=== PATIENT | female | born 1940 | race Caucasian/White ===

== ENCOUNTER 2018-03-10 09:24 | Emergency (ER) | payer OTHER ==
[~2018-03-10] VITALS: Ht 152.4 cm; Wt 2.3 kg
[2018-03-10] MEDS ORDERED: COZAAR100 MG (09:38)
[2018-03-10] MEDS ORDERED: NORVASC5 MG (09:38)
[2018-03-10] MEDS ORDERED: ULTRAM50 MG PO (11:44)
== END 2018-03-10 12:18 | disposition home or self-care (01) ==
LOC: ER 09:24
DX: S70.11XA Contusion of right thigh, initial encounter (principal); S70.01XA Contusion of right hip, initial encounter; S89.81XA Other specified injuries of right lower leg, initial encounter; W18.09XA Striking against other object with subsequent fall, initial encounter; Y93.89 Activity, other specified; Y92.018 Other place in single-family (private) house as the place of occurrence of the external cause; Y99.8 Other external cause status

== ENCOUNTER 2021-01-05 10:21 | Emergency (ER) | payer OTHER ==
[~2021-01-05] VITALS: Ht 154.9 cm; Wt 61.2 kg
[~2021-01-05 10:21] MED LIST: COZAAR100 MG; NORVASC5 MG; ULTRAM50 MG PO
== END 2021-01-05 12:51 | disposition home or self-care (01) ==
LOC: ER 10:21
DX: G89.11 Acute pain due to trauma (principal); M54.89 Other dorsalgia

== ENCOUNTER 2024-01-30 12:52 | Emergency (ER) | payer OTHER ==
[~2024-01-30] VITALS: Ht 157.5 cm; Wt 63.5 kg
[~2024-01-30 12:52] MED LIST changes: +PANADOL
[2024-01-30 15:05] LABS: HEMATOCRIT 41.2 % (36.0-45.00); HEMOGLOBIN 13.5 g/dL (12.0-15.00); MEAN CELL VOLUME 87.5 fL (80.00-100.00); MEAN CORPUSCULAR HEMOGLOBIN 28.7 pg (27.00-32.0); MEAN CORPUSCULAR HGB CONC 32.8 g/dl (32.0-36.0); PLATELET COUNT 263 K/uL (150-450); RED CELL DISTRIBUTION WIDTH 14.4 % (11.5-14.5)
[2024-01-30 15:26] LABS: CALCIUM 9.5 mg/dL (8.5-10.1); CREATININE SERUM 0.95 mg/dL (0.55-1.02); GFR 56.32; POTASSIUM 3.59 mEq/L (3.5-5.1)
[2024-01-30 18:55] LABS: PH,URINE 5.5 (5.0-8.0); URINE APPEARANCE Cloudy; URINE BILIRRUBIN Negative (NEGATIVE); URINE BLOOD Large; URINE COLOR Yellow; URINE GLUCOSE Negative (NEGATIVE); URINE KETONE Negative (NEGATIVE); URINE LEUKOCYTE Moderate; URINE NITRATE Negative; URINE UROBILINOGEN 0.2 E.U./dl
[2024-01-30 18:59] LABS: URINE BACTERIA 5672.2 uL (0.0-1933); URINE EPITHELIAL CELLS 19.7 uL (0.0-38.8); URINE RBC 51.6 uL (0.0-20.8); URINE WBC 170.5 uL (0.0-23.2)
[2024-01-30 19:06] LABS: URINE CAST 0.45 uL (0.0-1.40); URINE PROTEIN 100 (NEGATIVE)
== END 2024-01-30 21:27 | disposition home or self-care (01) ==
LOC: ER 12:52
PROVIDERS: General Practice
DX: R53.1 Weakness (principal); I10 Essential (primary) hypertension; Z20.822 Contact with and (suspected) exposure to COVID-19

== ENCOUNTER 2024-04-07 10:35 | Inpatient (IN) | payer OTHER ==
[~2024-04-07] VITALS: Ht 152.4 cm; Wt 139.7 kg
--- NOTE | 2024-04-07 11:13 | NUR ---
SE RECIBE PTRE ALERTA DESORIENATADA EN COMPANIA DE PARAMEDICOS Y FAMILIAR EL CUAL REFIERE PTE PRESENTO EPISODIO DE CONVULSION EN EL HOHAR.SE AMANDA EKG Y SE PRESENTA A .
[2024-04-07] MEDS ORDERED: 0.9 % SODIUM CHLORIDE 1,000 ML IV SCH ×2 (11:30→18:30)
[2024-04-07 12:29] LABS: HEMATOCRIT 40.4 % (36.0-45.00); HEMOGLOBIN 13.1 g/dL (12.0-15.00); MEAN CELL VOLUME 88.4 fL (80.00-100.00); MEAN CORPUSCULAR HEMOGLOBIN 28.6 pg (27.00-32.0); MEAN CORPUSCULAR HGB CONC 32.4 g/dl (32.0-36.0); PLATELET COUNT 342 K/uL (150-450); RED BLOOD COUNT 4.57 M/uL (4.00-6.00); RED CELL DISTRIBUTION WIDTH 14.3 % (11.5-14.5)
--- NOTE | 2024-04-07 12:45 | NUR ---
SE RECIBE PTE ALERTA DESORIENTADA EN COMPANIA DE FAMILIAR.SE EDINSON MUESTRAS DE LABORATORIO USANDO MEDIDAS ASEPTICAS.SE REALIZA CATETERIZACION DE ORINA.SE ADMINISTRAN MEDICAMENTOS AURY ORDEN.SE ORIENTA A FAMILIAR SOBRE OBJETIVO DE [place] MEDICO.
[2024-04-07 12:54] LABS: INR 0.99; PROTHROMBIN TIME 10.8 SECONDS (9.0-11.5)
--- NOTE | 2024-04-07 14:05 | NUR ---
SE INTENTA CATETERIZACION Y NO SE PUDO RECOLECTAR MUESTRA.
[2024-04-07 14:53] LABS: CALCIUM 9.4 mg/dL (8.5-10.1); CREATININE SERUM 0.89 mg/dL (0.55-1.02); GFR 60.72; POTASSIUM 3.47 mEq/L (3.5-5.1)
[2024-04-07] MEDS ORDERED: INSULIN LISPRO 1,000 UNIT/10 ML UNITS SUBCUTANEO PRN (18:30)
[2024-04-07] MEDS ORDERED: DEXTROSE 50 % IN WATER 0.5 G/ML DISP.SYRIN IV PRN (18:30)
[2024-04-07] MEDS ORDERED: CEFTRIAXONE SODIUM 1,000 MG VIAL IV SCH (18:42)
[2024-04-07] MEDS ORDERED: ONDANSETRON HCL 4 MG in DEXTROSE 5 % IN WATER 50 ML IV PRN (18:45)
[2024-04-07] MEDS ORDERED: ACETAMINOPHEN 500 MG GEL..CAP PO PRN (18:45)
[2024-04-07] MEDS ORDERED: MORPHINE SULFATE 2 MG/ML CARTRIDGE IV PRN (18:45)
[2024-04-07] MEDS ORDERED: hydrALAZINE HCL 20 MG VIAL IV PRN (18:45)
[2024-04-07] MEDS ORDERED: LevETIRAcetam 500 MG/5 ML VIAL IV SCH (21:00)
[2024-04-07] MEDS ORDERED: FAMOTIDINE/PF 20 MG in 0.9 % SODIUM CHLORIDE 8 ML IV PUSH SCH (21:00)
[2024-04-07 22:30] VITALS: BP 150/80; O2SAT 99
[2024-04-07 22:38] LABS: URINE APPEARANCE Clear; URINE BILIRRUBIN Negative (NEGATIVE); URINE BLOOD Moderate; URINE COLOR Yellow; URINE GLUCOSE Negative (NEGATIVE); URINE KETONE Negative (NEGATIVE); URINE LEUKOCYTE Small; URINE NITRATE Negative; URINE PROTEIN Negative (NEGATIVE)
[2024-04-07 22:43] LABS: URINE BACTERIA 1075.8 uL (0.0-1933); URINE EPITHELIAL CELLS 7.5 uL (0.0-38.8); URINE RBC 68.4 uL (0.0-20.8); URINE WBC 105.7 uL (0.0-23.2)
[2024-04-07 22:44] LABS: URINE CAST 0.44 uL (0.0-1.40)
[2024-04-08 01:56] VITALS: BP 153/74; O2SAT 97
[2024-04-08 05:15] VITALS: BP 186/74
[2024-04-08 05:30] VITALS: BP 143/75; O2SAT 98
[2024-04-08 07:52] LABS: URINE APPEARANCE Clear; URINE BILIRRUBIN Negative (NEGATIVE); URINE BLOOD Moderate; URINE COLOR Yellow; URINE GLUCOSE Negative (NEGATIVE); URINE KETONE Trace (NEGATIVE); URINE LEUKOCYTE Small; URINE NITRATE Negative; URINE PROTEIN 30 (NEGATIVE)
[2024-04-08 07:57] LABS: URINE BACTERIA 156.6 uL (0.0-1933); URINE CAST 1.91 uL (0.0-1.40); URINE RBC 179.8 uL (0.0-20.8); URINE WBC 378.3 uL (0.0-23.2)
[2024-04-08 07:59] LABS: INR 1.02; PARTIAL THROMBOPLASTIN TIME 31.6 SECONDS (22.0-34.0); PROTHROMBIN TIME 11.1 SECONDS (9.0-11.5)
[2024-04-08 08:25] LABS: ALBUMIN 3.1 gm/dL (3.4-5.0); BILIRUBIN TOTAL 0.5 mg/dL (0.3-1.2); BILIRUBIN,CONJUGATED 0.14 mg/dL (0.0-0.2); BILIRUBIN,UNCONJUGATED 0.36 mg/dL (0.0-0.6); CALCIUM 8.7 mg/dL (8.5-10.1); CHOL HDL RATIO 3.1 (0-5.0); CREATININE SERUM 0.65 mg/dL (0.55-1.02); GFR 87.26; GLOBULINA 3.5 G/DL (2.4-3.5); POTASSIUM 3.92 mEq/L (3.5-5.1); TOTAL PROTEIN 6.6 gm/dL (6.4-8.2)
[2024-04-08 08:27] LABS: C-REACTIVE PROTEIN 2.61 MG/DL (0.00-0.29)
[2024-04-08 08:40] LABS: HEMATOCRIT 34.6 % (36.0-45.00); HEMOGLOBIN 11.6 g/dL (12.0-15.00); MEAN CELL VOLUME 88.5 fL (80.00-100.00); MEAN CORPUSCULAR HEMOGLOBIN 29.7 pg (27.00-32.0); MEAN CORPUSCULAR HGB CONC 33.5 g/dl (32.0-36.0); PLATELET COUNT 281 K/uL (150-450); RED BLOOD COUNT 3.91 M/uL (4.00-6.00); RED CELL DISTRIBUTION WIDTH 14.5 % (11.5-14.5)
[2024-04-08 09:04] VITALS: BP 156/8; O2SAT 94
[2024-04-08 09:04] LABS: ERYTHROCYTE SEDIMENTATION RATE 65 mm/hr
[2024-04-08 16:51] VITALS: BP 109/79; O2SAT 96
[2024-04-09 00:35] VITALS: BP 129/62
[2024-04-09 09:00] VITALS: BP 137/73; O2SAT 95
[2024-04-09] MEDS ORDERED: CEFTRIAXONE SODIUM 2,000 MG VIAL IV SCH (09:00)
[2024-04-09 16:39] VITALS: BP 191/94; O2SAT 95
[2024-04-10 01:44] VITALS: BP 170/80
[2024-04-10] MEDS ORDERED: FAMOTIDINE/PF 20 MG/2 ML VIAL ONE (07:46)
[2024-04-10 09:18] VITALS: BP 170/80; O2SAT 96
[2024-04-10 12:13] LABS: HEMATOCRIT 34.1 % (36.0-45.00); HEMOGLOBIN 11.4 g/dL (12.0-15.00); MEAN CELL VOLUME 87.1 fL (80.00-100.00); MEAN CORPUSCULAR HEMOGLOBIN 29.1 pg (27.00-32.0); MEAN CORPUSCULAR HGB CONC 33.4 g/dl (32.0-36.0); PLATELET COUNT 288 K/uL (150-450); RED BLOOD COUNT 3.92 M/uL (4.00-6.00); RED CELL DISTRIBUTION WIDTH 14.8 % (11.5-14.5)
[2024-04-10 18:18] VITALS: BP 140/70
[2024-04-11 01:20] VITALS: BP 155/71
[2024-04-11 08:40] VITALS: BP 172/85; O2SAT 98
[2024-04-11] MEDS ORDERED: LOSARTAN POTASSIUM 50 MG TABLET PO SCH (09:06)
[2024-04-11 10:28] LABS: URINE APPEARANCE Clear; URINE BILIRRUBIN Negative (NEGATIVE); URINE COLOR Yellow; URINE GLUCOSE Negative (NEGATIVE); URINE KETONE Trace (NEGATIVE); URINE LEUKOCYTE Negative; URINE NITRATE Negative; URINE PROTEIN Negative (NEGATIVE); URINE UROBILINOGEN 0.2 E.U./dl
[2024-04-11 10:33] LABS: URINE BACTERIA 13.4 uL (0.0-1933); URINE EPITHELIAL CELLS 8.3 uL (0.0-38.8); URINE RBC 34.1 uL (0.0-20.8); URINE WBC 60.7 uL (0.0-23.2)
[2024-04-11 11:03] LABS: URINE BLOOD TRACES
[2024-04-11 13:18] LABS: ALBUMIN 2.6 gm/dL (3.4-5.0); BILIRUBIN TOTAL 0.28 mg/dL (0.3-1.2); CALCIUM 8.6 mg/dL (8.5-10.1); CREATININE SERUM 0.58 mg/dL (0.55-1.02); GFR 99.53; GLOBULINA 3.3 G/DL (2.4-3.5); MAGNESIUM 2.1 mg/dL (1.8-2.4); PHOSPHOROUS 3.1 mg/dL (2.5-4.9); POTASSIUM 3.55 mEq/L (3.5-5.1); TOTAL PROTEIN 5.9 gm/dL (6.4-8.2)
[2024-04-11 16:33] VITALS: BP 154/80; O2SAT 100
[2024-04-11 20:37] VITALS: BP 170/80; O2SAT 98
[2024-04-12 01:43] VITALS: BP 210/120
[2024-04-12 03:32] VITALS: BP 127/65
[2024-04-12 08:47] VITALS: BP 192/97; O2SAT 96
[2024-04-12] MEDS ORDERED: NIFEDIPINE 30 MG TAB.SA.OSM PO SCH (13:20)
[2024-04-12] MEDS ORDERED: ARICEPT5 MG PO (15:05)
[2024-04-12] MEDS ORDERED: COZAAR100 MG PO (15:05)
[2024-04-12] MEDS ORDERED: BUSPIRONE HCL15 MG PO (15:06)
[2024-04-12] MEDS ORDERED: ROSUVASTATIN CA10 MG PO (15:07)
[2024-04-12] MEDS ORDERED: AMOX-CLAV 875-1 EAC1 PO (15:07)
[2024-04-12] MEDS ORDERED: KEPPRA500 MG PO (15:08)
[2024-04-12 16:25] VITALS: BP 140/80; O2SAT 98
== END 2024-04-12 16:34 | disposition home or self-care (01) | DRG 101 ==
LOC: ER 10:35 → MEDI 18:54
PROVIDERS: Emergency Medicine; General Practice; Internal Medicine Infectious Disease; ADMIT Internal Medicine; ATTEND Internal Medicine
PROC: B020YZZ Computerized Tomography (CT Scan) of Brain using Other Contrast (ICD-10-PCS; principal; 2024-04-07)
PROC: B030YZZ Magnetic Resonance Imaging (MRI) of Brain using Other Contrast (ICD-10-PCS; 2024-04-07)
PROC: B030ZZZ Magnetic Resonance Imaging (MRI) of Brain (ICD-10-PCS; 2024-04-07)
PROC: 0T9B70Z Drainage of Bladder with Drainage Device, Via Natural or Artificial Opening (ICD-10-PCS; 2024-04-08)
DX: G40.909 Epilepsy, unspecified, not intractable, without status epilepticus (principal); N39.0 Urinary tract infection, site not specified; I67.89 Other cerebrovascular disease; F01.50 Vascular dementia, unspecified severity, without behavioral disturbance, psychotic disturbance, mood disturbance, and anxiety; D72.829 Elevated white blood cell count, unspecified; I10 Essential (primary) hypertension
CPT/HCPCS: 70546

== ENCOUNTER 2024-09-13 07:09 | Emergency (ER) | payer OTHER ==
[~2024-09-13] VITALS: Ht 152.4 cm; Wt 72.6 kg
[~2024-09-13 07:09] MED LIST changes: +AMOX-CLAV 875-1 EAC1 PO; +ARICEPT5 MG PO; +BUSPIRONE HCL15 MG PO; +COZAAR100 MG PO; +KEPPRA500 MG PO; +ROSUVASTATIN CA10 MG PO
[2024-09-13 08:01] VITALS: BP 180/90; O2SAT 94
[2024-09-13] MEDS ORDERED: CEFTRIAXONE SODIUM 1,000 MG VIAL IV ONE (08:30)
[2024-09-13] MEDS ORDERED: 0.9 % SODIUM CHLORIDE 1,000 ML IV SCH (08:30)
[2024-09-13] MEDS ORDERED: CEFTRIAXONE SODIUM 1,000 MG VIAL ONE (08:40)
[2024-09-13 09:21] LABS: BASO % 0.2 % (0.1-1.2); LYMPH # 0.17 (1.18-3.74); LYMPH % 1.5 % (19.3-53.1); MEAN CORPUSCULAR HEMOGLOBIN 26.2 pg (25.6-32.2); MONO # 0.53 (0.24-0.82); MONO % 4.7 % (4.7-12.5); NEUT # 10.44 (1.56-6.13); NEUT % 93.2 % (34.0-71.1); PLATELET COUNT 276 K/uL (163-369); RED BLOOD COUNT 4.58 M/uL (3.93-5.22); RED CELL DISTRIBUTION WIDTH 15.5 % (11.6-14.4)
[2024-09-13 09:48] LABS: COVID-19 AG POSITIVE (NEGATIVE); INFLUENZA A AG NEGATIVE (NEGATIVE); INFLUENZA B AG NEGATIVE (NEGATIVE)
[2024-09-13 09:51] LABS: ALBUMIN 3.4 gm/dL (3.4-5.0); BILIRUBIN TOTAL 0.4 mg/dL (0.3-1.2); CREATININE SERUM 0.96 mg/dL (0.55-1.02); GFR 55.64; GLOBULINA 4.9 G/DL (2.4-3.5); POTASSIUM 3.77 mEq/L (3.5-5.1); TOTAL PROTEIN 8.3 gm/dL (6.4-8.2)
[2024-09-13 11:08] LABS: PH,URINE 7.5 (5.0-8.0); URINE APPEARANCE Clear; URINE BILIRRUBIN Negative (NEGATIVE); URINE BLOOD Negative; URINE COLOR Yellow; URINE GLUCOSE Negative (NEGATIVE); URINE KETONE Negative (NEGATIVE); URINE LEUKOCYTE Negative; URINE NITRATE Negative; URINE PROTEIN Trace (NEGATIVE)
[2024-09-13 11:14] LABS: URINE BACTERIA 20.8 uL (0.0-1933); URINE EPITHELIAL CELLS 4.9 uL (0.0-38.8); URINE RBC 13.8 uL (0.0-20.8); URINE WBC 4.2 uL (0.0-23.2)
[2024-09-13 11:17] LABS: URINE CAST 0.14 uL (0.0-1.40)
[2024-09-13] MEDS ORDERED: PAXLOVID 150-11 EAC2 PO (12:10)
[2024-09-13 19:03] LABS: ABG PH 7.418 (7.35-7.45); ABG pCO2 36.1 mmHg (35-45); BASE EXCESS -1.2 mmol/l; BICARBONATE 22.8 mmol/l (23-25); Tco2 23.9 mmol/l
[2024-09-13 19:09] LABS: allen test SATISFACTORY; mode ROOM AIR; o2 21 %; puncture site RADIAL LEFT
== END 2024-09-13 22:08 | disposition home or self-care (01) ==
LOC: ER 07:09
PROVIDERS: General Practice
DX: U07.1 COVID-19 (principal); I10 Essential (primary) hypertension
CPT/HCPCS: 36415; 70450; 71045; 82803; 96365; 99283; J0696; J3490